=== PATIENT | female | born 1985 | race Caucasian/White ===

== ENCOUNTER → 2018-01-13 | Outpatient (CLI) | payer OTHER | LOC: M WHC 15:10 | DX: M85.9 Disorder of bone density and structure, unspecified (principal) ==

== ENCOUNTER → 2018-08-10 | Outpatient (CLI) | payer OTHER | LOC: M CARPUL 10:18 | DX: R06.00 Dyspnea, unspecified (principal); I36.1 Nonrheumatic tricuspid (valve) insufficiency ==

== ENCOUNTER 2018-09-09 14:24 | Outpatient (CLI) | payer OTHER | END 2018-09-09 16:10 | disposition home or self-care (01) | LOC: M LDO 14:24 | DX: Z36.89 Encounter for other specified antenatal screening (principal); Z3A.33 33 weeks gestation of pregnancy | CPT/HCPCS: 76815 ==

== ENCOUNTER 2018-10-27 11:06 | Inpatient (IN) | payer OTHER ==
[2018-10-27] MEDS: LACTATED RINGER'S 1000 ML IV (12:05)
[2018-10-27 12:13] LABS: BASO % 0.3 % (0.0-1.0); EOS % 0.6 % (0.0-3.0); HEMATOCRIT 32.6 % (36.0-47.0); HEMOGLOBIN 10.9 g/dl (12.0-15.5); IMMATURE GRANULOCYTE % 0.8 % (0-3.0); LYMPH # 0.7 10^3/uL (1.5-4.5); LYMPH % 11.2 % (24.0-44.0); MEAN CORPUSCULAR HEMOGLOBIN 30.6 pg (27.0-33.0); MEAN CORPUSCULAR HGB CONC 33.4 g/dl (32.0-36.5); MEAN CORPUSCULAR VOLUME 91.6 fl (80.0-96.0); MONO # 0.5 10^3/uL (0.0-0.8); MONO % 7.6 % (0.0-5.0); NEUTROPHILS # 5.3 10^3/uL (1.8-7.7); NEUTROPHILS % 79.5 % (36.0-66.0); PLATELET COUNT, AUTOMATED 117 10^3/uL (150-450); RED BLOOD COUNT 3.56 10^6/uL (4.00-5.40); RED CELL DISTRIBUTION WIDTH 14.3 % (11.5-14.5); WHITE BLOOD COUNT 6.6 10^3/uL (4.0-10.0)
[2018-10-27 12:18] LABS: AMORPHOUS SEDIMENT MODERATE (NEGATIVE); APPEARANCE, URINE HAZY (CLEAR); BACTERIA, URINE AUTO 1+ (NEGATIVE); BILIRUBIN, URINE AUTO NEGATIVE (NEGATIVE); BLOOD, URINE BLOOD NEGATIVE (NEGATIVE); COLOR, URINE YELLOW (YELLOW); GLUCOSE, URINE (UA) AUTO NEGATIVE (NEGATIVE); KETONE, URINE AUTO NEGATIVE (NEGATIVE); LEUKOCYTE ESTERASE, URINE AUTO TRACE (NEGATIVE); NITRITE, URINE AUTO NEGATIVE (NEGATIVE); PROTEIN, URINE AUTO NEGATIVE (NEGATIVE); RBC, URINE AUTO 7 /HPF (0-3); SPECIFIC GRAVITY URINE AUTO 1.014 (1.002-1.035); SQUAMOUS EPITHELIAL CELL UR AU 7 /HPF (0-6); UROBILINOGEN, URINE AUTO 0.2 mg/dL (0.0-2.0); WBC, URINE AUTO 9 /HPF (0-3)
[2018-10-27] MEDS: OXYTOCIN DRIP 30 UNITS in APPROPRIATE DILUENT 1 EA IV (12:22)
[2018-10-27 12:32] LABS: CPK CREATINE PHOSPHOKINASE 78 U/L (26-192)
[2018-10-27] MEDS: LR 1,000 ML IV ×2 (13:07→19:57)
[2018-10-27] MEDS ORDERED: FENTANYL 2MCG/ML ROPIVACAINE 0.2% IN 0.9% NACL 100ML IVBAG As Ordered (19:47)
[2018-10-27] MEDS: HYDROCORTISONE 100 MG/2 ML VIAL (J1720) IV (19:57)
[2018-10-27] MEDS: ceFAZolin SOD 1 GM in D5W MINI-BAG PLUS 50 ML IV (20:05)
[2018-10-27] MEDS ORDERED: REFRIGERATOR IV KEYS XX (20:36)
[2018-10-27] MEDS ORDERED: LACTATED RINGER'S 1000 ML IV (20:36)
[2018-10-27] MEDS ORDERED: diphenhydrAMINE INJ 50MG/ML VIAL (J1200) IV (20:36)
[2018-10-27] MEDS ORDERED: ONDANSETRON 4MG/2ML VIAL (J2405) IV (20:36)
[2018-10-27] MEDS ORDERED: EPIDURAL/PCA KEYS XX (20:36)
[2018-10-27] MEDS: FENTANYL/ROPIVACAINE/NACL BAG 100 ML EPIDURAL (20:36)
[2018-10-27] MEDS ORDERED: NALOXONE INJ 0.4 MG/1 ML VIAL (J2310) IV (20:36)
[2018-10-27] MEDS ORDERED: EPIDURAL COMMENT XX (20:36)
[2018-10-27] MEDS ORDERED: ePHEDrine SULFATE 25 MG/5 ML(5MG/ML) SYRINGE IV (20:36)
[2018-10-28] MEDS: OXYTOCIN DRIP 30 UNITS in APPROPRIATE DILUENT 1 EA IV (00:01)
[2018-10-28] MEDS ORDERED: DOCUSATE SODIUM 100 MG CAP PO (00:15)
[2018-10-28] MEDS ORDERED: ONDANSETRON 4MG/2ML VIAL (J2405) IV (00:15)
[2018-10-28] MEDS ORDERED: DIBUCAINE 1% OINTMENT 30GM TOP (00:15)
[2018-10-28] MEDS: HYDROCORTISONE 100 MG/2 ML VIAL (J1720) IV ×2 (03:41→12:07)
[2018-10-28] MEDS: IBUPROFEN 800 MG TAB PO ×3 (05:01→21:50)
[2018-10-28] MEDS: MEASLES,MUMPS,RUBELLA VACCINE INJ (MMR-II) (90707) SC (06:59)
[2018-10-28] MEDS: RHOGAM 300 MCG (1500 IU) INJ (J2790) IM (06:59)
[2018-10-28] MEDS: PRENATAL VITAMINS CHEWABLE TABLET PO (07:47)
[2018-10-28] MEDS: ACETAMINOPHEN 500 MG TAB PO ×3 (07:48→19:56)
[2018-10-29] MEDS: ACETAMINOPHEN 500 MG TAB PO (03:06)
[2018-10-29] MEDS: IBUPROFEN 800 MG TAB PO (06:05)
[2018-10-29] MEDS: MEASLES,MUMPS,RUBELLA VACCINE INJ (MMR-II) (90707) SC (07:09)
[2018-10-29] MEDS: RHOGAM 300 MCG (1500 IU) INJ (J2790) IM (07:09)
[2018-10-29] MEDS: PRENATAL VITAMINS CHEWABLE TABLET PO (07:33)
== END 2018-10-29 10:55 | disposition home or self-care (01) | DRG 807 ==
LOC: M LDI 11:06 → M OBS 10-28 01:52
PROVIDERS: Obstetrics & Gynecology
PROC: 10E0XZZ Delivery of Products of Conception, External Approach (ICD-10-PCS; principal; 2018-10-27)
PROC: 0HQ9XZZ Repair Perineum Skin, External Approach (ICD-10-PCS; 2018-10-27)
PROC: 3E033VJ Introduction of Other Hormone into Peripheral Vein, Percutaneous Approach (ICD-10-PCS; 2018-10-27)
DX: O48.0 Post-term pregnancy (principal); Z37.0 Single live birth; Z3A.40 40 weeks gestation of pregnancy; O69.82X0 Labor and delivery complicated by other cord entanglement, without compression, not applicable or unspecified; O70.0 First degree perineal laceration during delivery; B35.8 Other dermatophytoses; Z79.52 Long term (current) use of systemic steroids; Z88.0 Allergy status to penicillin; Z88.2 Allergy status to sulfonamides